=== PATIENT | male | born 1970 | race Caucasian/White ===

== ENCOUNTER 2018-01-25 10:13 | Inpatient (IN) | payer OTHER ==
[2018-01-25] MEDS: DIPHTH/TET/ACEL PERTUSS (ADULT) 0.5 ML VIAL IM* (10:56)
[2018-01-25 12:39] LABS: ADD MAN DIFF? NO
[2018-01-25] MEDS: morphine 4 MG/ML VIAL IV (12:48)
[2018-01-25 12:56] LABS: BASOPHIL # 0.1 10^3/ul (0.0-0.1); BASOPHILS % 0.7 % (0.0-2.0); EOSINOPHILS # 0.1 10^3/ul (0.0-0.5); EOSINOPHILS % 1.1 % (0.0-7.0); HEMATOCRIT 45.9 % (42.0-52.0); HEMOGLOBIN 16.1 g/dl (14.0-18.0); LYMPHOCYTES # 1.4 10^3/ul (0.8-2.9); LYMPHOCYTES % 19.1 % (15.0-51.0); MEAN CORPUSCULAR HEMOGLOBIN 32.9 pg (29.0-33.0); MEAN CORPUSCULAR HGB CONC 35.1 g/dl (32.0-37.0); MEAN CORPUSCULAR VOLUME 93.7 fl (82.0-101.0); MEAN PLATELET VOLUME 10.8 fl (7.4-10.4); MONOCYTE # 0.5 10^3/ul (0.3-0.9); MONOCYTES % 6.1 % (0.0-11.0); NEUTROPHIL # 5.5 10^3/ul (1.6-7.5); NEUTROPHILS % 72.6 % (39.0-77.0); PLATELET COUNT 151 10^3/UL (140-415); RED CELL DISTRIBUTION WIDTH 12.6 % (11.5-14.5)
[2018-01-25 12:56] LABS: WHITE BLOOD COUNT 7.6 10^3/ul (4.8-10.8)
[2018-01-25] MEDS ORDERED: ONDANSETRON 4 MG INJ IV (13:00)
[2018-01-25] MEDS ORDERED: ACETAMINOPHEN 325 MG TAB PO ×2 (13:00→13:30)
[2018-01-25 13:01] LABS: ANION GAP 18 (8-16); BLOOD UREA NITROGEN 11 mg/dl (7-20); CALCIUM 9.3 mg/dl (8.4-10.2); CARBON DIOXIDE 23 mmol/L (21-31); CHLORIDE 108 mmol/L (97-110); CREATININE 0.89 mg/dl (0.61-1.24); GLUCOSE 210 mg/dl (70-220); POTASSIUM 4.8 mmol/L (3.5-5.1); SODIUM 144 mmol/L (135-144)
[2018-01-25 13:04] LABS: INR 0.94; PROTIME 12.7 Sec (11.9-14.9)
[2018-01-25 13:05] LABS: PARTIAL THROMBOPLASTIN TIME 24.8 Sec (25.0-35.0)
[2018-01-25] MEDS ORDERED: morphine 2 MG INJ IV (13:30)
[2018-01-25] MEDS ORDERED: BISACODYL (EC) 5 MG TAB PO (13:30)
[2018-01-25] MEDS ORDERED: MAGNESIUM HYDROXIDE 30ML CUP PO (13:30)
[2018-01-25] MEDS ORDERED: LORAZEPAM 0.5 MG TAB PO (13:30)
[2018-01-25] MEDS ORDERED: NACL 0.9% 3 ML SYG IV (13:30)
[2018-01-25] MEDS: HEPARIN 5,000 UNIT/0.5 ML VIAL SC ×2 (14:00→22:00)
[2018-01-25] MEDS: DEXTROSE 5%-0.45% NACL 1,000 ML IV (16:07)
[2018-01-25] MEDS ORDERED: GLUCOSE GEL 15 GRAM TUBE BUCCAL (20:30)
[2018-01-25] MEDS ORDERED: DEXTROSE 50% 50 ML SYRINGE IV ×2 (20:30)
[2018-01-25] MEDS ORDERED: GLUCOSE GEL 15 GRAM TUBE PO ×2 (20:30)
[2018-01-25] MEDS ORDERED: GLUCAGON 1 MG INJ IM (20:30)
[2018-01-25] MEDS: INSULIN ASPART [NOVOLOG] 3 ML PEN SC (20:53)
[2018-01-26] MEDS: ACCU-CHEK XX (02:06)
[2018-01-26 05:31] LABS: ADD MAN DIFF? NO
[2018-01-26 05:40] LABS: BASOPHILS % 0.6 % (0.0-2.0); EOSINOPHILS # 0.1 10^3/ul (0.0-0.5); EOSINOPHILS % 1.3 % (0.0-7.0); HEMATOCRIT 42.6 % (42.0-52.0); HEMOGLOBIN 14.7 g/dl (14.0-18.0); LYMPHOCYTES # 1.5 10^3/ul (0.8-2.9); LYMPHOCYTES % 21.8 % (15.0-51.0); MEAN CORPUSCULAR HGB CONC 34.5 g/dl (32.0-37.0); MEAN CORPUSCULAR VOLUME 95.5 fl (82.0-101.0); MONOCYTE # 0.9 10^3/ul (0.3-0.9); MONOCYTES % 13.3 % (0.0-11.0); NEUTROPHIL # 4.4 10^3/ul (1.6-7.5); NEUTROPHILS % 62.7 % (39.0-77.0); PLATELET COUNT 132 10^3/UL (140-415); POSITIVE DIFF @See below; RED BLOOD COUNT 4.46 10^6/ul (4.70-6.10); RED CELL DISTRIBUTION WIDTH 12.5 % (11.5-14.5)
[2018-01-26] MEDS: HEPARIN 5,000 UNIT/0.5 ML VIAL SC ×3 (05:40→22:47)
[2018-01-26 06:06] LABS: HEMOGLOBIN A1C 8.4 % (0-5.9)
[2018-01-26 06:30] LABS: ALANINE AMINOTRANSFERASE 65 IU/L (13-69); ALBUMIN 4.1 g/dl (3.3-4.9); ALKALINE PHOSPHATASE 59 IU/L (42-121); ANION GAP 14 (8-16); ASPARTATE AMINO TRANSFERASE 45 IU/L (15-46); BILIRUBIN,INDIRECT 1.1 mg/dl (0-1.1); BILIRUBIN,TOTAL 1.1 mg/dl (0.2-1.3); BLOOD UREA NITROGEN 11 mg/dl (7-20); CARBON DIOXIDE 27 mmol/L (21-31); CHLORIDE 102 mmol/L (97-110); CREATININE 0.85 mg/dl (0.61-1.24); GLUCOSE 172 mg/dl (70-220); MAGNESIUM 1.9 mg/dl (1.7-2.5); POTASSIUM 4.1 mmol/L (3.5-5.1); SODIUM 139 mmol/L (135-144); TOTAL PROTEIN 7.5 g/dl (6.1-8.1)
[2018-01-26] MEDS: INSULIN ASPART [NOVOLOG] 3 ML PEN SC ×4 (07:32→20:37)
[2018-01-26] MEDS: LINAGLIPTIN 5 MG TABLET PO (10:49)
[2018-01-26] MEDS: metFORMIN 500 MG TAB PO (17:22)
[2018-01-26] MEDS: HYDROCODONE/APAP (5/325) TAB PO (19:45)
[2018-01-27] MEDS: ACCU-CHEK XX (02:44)
[2018-01-27] MEDS: HEPARIN 5,000 UNIT/0.5 ML VIAL SC ×3 (06:00→22:26)
[2018-01-27] MEDS: INSULIN ASPART [NOVOLOG] 3 ML PEN SC ×4 (07:40→20:47)
[2018-01-27] MEDS: metFORMIN 500 MG TAB PO ×2 (07:54→18:14)
[2018-01-27] MEDS: LINAGLIPTIN 5 MG TABLET PO (08:24)
[2018-01-27] MEDS: HYDROCODONE/APAP (5/325) TAB PO (20:49)
[2018-01-27] MEDS: FAMOTIDINE 20 MG INJ IV (22:23)
[2018-01-27] MEDS ORDERED: morphine LIQ (10 MG/5 ML) CUP PO (23:30)
[2018-01-28] MEDS: ACCU-CHEK XX (02:00)
[2018-01-28] MEDS: DEXTROSE 5%-0.45% NACL 1,000 ML IV ×2 (03:43→12:50)
[2018-01-28] MEDS: INSULIN ASPART [NOVOLOG] 3 ML PEN SC ×6 (05:00→20:32)
[2018-01-28 05:42] LABS: ADD MAN DIFF? NO
[2018-01-28 05:56] LABS: WHITE BLOOD COUNT 5.6 10^3/ul (4.8-10.8)
[2018-01-28 05:56] LABS: BASOPHIL # 0.1 10^3/ul (0.0-0.1); BASOPHILS % 1.1 % (0.0-2.0); EOSINOPHILS # 0.2 10^3/ul (0.0-0.5); EOSINOPHILS % 3.8 % (0.0-7.0); HEMATOCRIT 40.5 % (42.0-52.0); HEMOGLOBIN 14.1 g/dl (14.0-18.0); LYMPHOCYTES # 1.5 10^3/ul (0.8-2.9); LYMPHOCYTES % 27.1 % (15.0-51.0); MEAN CORPUSCULAR HEMOGLOBIN 32.9 pg (29.0-33.0); MEAN CORPUSCULAR HGB CONC 34.8 g/dl (32.0-37.0); MEAN CORPUSCULAR VOLUME 94.4 fl (82.0-101.0); MEAN PLATELET VOLUME 11.5 fl (7.4-10.4); MONOCYTE # 0.8 10^3/ul (0.3-0.9); MONOCYTES % 14.4 % (0.0-11.0); NEUTROPHILS % 52.9 % (39.0-77.0); PLATELET COUNT 122 10^3/UL (140-415); RED BLOOD COUNT 4.29 10^6/ul (4.70-6.10); RED CELL DISTRIBUTION WIDTH 12.1 % (11.5-14.5)
[2018-01-28] MEDS: HEPARIN 5,000 UNIT/0.5 ML VIAL SC ×3 (06:00→21:59)
[2018-01-28 06:31] LABS: ANION GAP 11 (8-16); BLOOD UREA NITROGEN 14 mg/dl (7-20); CALCIUM 9.1 mg/dl (8.4-10.2); CARBON DIOXIDE 28 mmol/L (21-31); CHLORIDE 99 mmol/L (97-110); CREATININE 0.85 mg/dl (0.61-1.24); GLUCOSE 165 mg/dl (70-220); MAGNESIUM 1.7 mg/dl (1.7-2.5); PHOSPHORUS 4.1 mg/dl (2.5-4.9); POTASSIUM 4.2 mmol/L (3.5-5.1); SODIUM 134 mmol/L (135-144)
[2018-01-28] MEDS: metFORMIN 500 MG TAB PO ×2 (07:38→17:50)
[2018-01-28] MEDS: LINAGLIPTIN 5 MG TABLET PO (08:59)
[2018-01-28] MEDS: FAMOTIDINE 20 MG INJ IV ×2 (09:12→21:00)
[2018-01-28] MEDS: INSULIN GLARGINE [LANTus] (100 UNITS/ML) SYG SC (09:16)
[2018-01-28] MEDS ORDERED: MIDAZOLAM 1 MG/ML 2 ML INJ (14:25)
[2018-01-28] MEDS: POLYMYXIN/BACITRACIN 1L IRRIG IRR (15:30)
[2018-01-28] MEDS ORDERED: morphine 10 MG INJ (15:37)
[2018-01-28] MEDS ORDERED: ROCURONIUM 50 MG INJ (16:41)
[2018-01-28] MEDS ORDERED: PROPOFOL 20 ML (16:41)
[2018-01-28] MEDS ORDERED: LIDOCAINE 2% (SDV) 5 ML INJ (16:41)
[2018-01-28] MEDS ORDERED: ONDANSETRON 4 MG INJ (16:41)
[2018-01-28] MEDS ORDERED: CEFAZOLIN 1 GM INJ (16:41)
[2018-01-28] MEDS ORDERED: ROPIVACAINE 0.5 % 30 ML VIAL (16:42)
[2018-01-28] MEDS ORDERED: NACL 0.9% 3 ML SYG IV (17:30)
[2018-01-28] MEDS ORDERED: FENTAnyl 50 MCG/ML VIAL IV (18:00)
[2018-01-28] MEDS ORDERED: NALOXONE (0.4 MG/ML) INJ IV (18:00)
[2018-01-28] MEDS ORDERED: HYDROmorphONE 1 MG/5 ML IV SYRINGE IV (18:00)
[2018-01-28] MEDS ORDERED: MEPERIDINE 25 MG INJ IV (18:00)
[2018-01-28] MEDS ORDERED: DIPHENHYDRAMINE 50 MG INJ IV (18:00)
[2018-01-28] MEDS ORDERED: LABETALOL HCL 20MG INJ IV (18:00)
[2018-01-28] MEDS: hydrALAzine 20 MG INJ IV (18:07)
[2018-01-28] MEDS: HYDROmorphONE 1 MG/5 ML IV SYRINGE IV (18:07)
[2018-01-28] MEDS: ONDANSETRON 4 MG INJ IV (18:08)
[2018-01-28] MEDS: D5W-0.45 NACL + KCL 20 MEQ 1,000 ML IV (18:37)
[2018-01-28] MEDS: CEFAZOLIN 1 GM/50 ML (PMX) 50 ML IVPB (18:37)
[2018-01-28] MEDS: 1/2 NS + KCL 20 MEQ 1,000 ML IV (21:57)
[2018-01-29] MEDS: CEFAZOLIN 1 GM/50 ML (PMX) 50 ML IVPB ×2 (02:03→09:06)
[2018-01-29] MEDS: ONDANSETRON 4 MG INJ IV (02:24)
[2018-01-29] MEDS: HYDROCODONE/APAP (5/325) TAB PO ×4 (02:24→13:56)
[2018-01-29 04:56] LABS: ADD MAN DIFF? NO
[2018-01-29 05:07] LABS: BASOPHILS % 0.4 % (0.0-2.0); EOSINOPHILS % 0.1 % (0.0-7.0); HEMATOCRIT 37.8 % (42.0-52.0); HEMOGLOBIN 13.3 g/dl (14.0-18.0); LYMPHOCYTES # 0.8 10^3/ul (0.8-2.9); LYMPHOCYTES % 10.7 % (15.0-51.0); MEAN CORPUSCULAR HEMOGLOBIN 33.7 pg (29.0-33.0); MEAN CORPUSCULAR HGB CONC 35.2 g/dl (32.0-37.0); MEAN CORPUSCULAR VOLUME 95.7 fl (82.0-101.0); MEAN PLATELET VOLUME 10.8 fl (7.4-10.4); MONOCYTE # 0.8 10^3/ul (0.3-0.9); MONOCYTES % 11.5 % (0.0-11.0); NEUTROPHIL # 5.6 10^3/ul (1.6-7.5); NEUTROPHILS % 76.7 % (39.0-77.0); PLATELET COUNT 131 10^3/UL (140-415); RED BLOOD COUNT 3.95 10^6/ul (4.70-6.10); RED CELL DISTRIBUTION WIDTH 12.2 % (11.5-14.5)
[2018-01-29 05:07] LABS: WHITE BLOOD COUNT 7.2 10^3/ul (4.8-10.8)
[2018-01-29 05:19] LABS: ANION GAP 12 (8-16); BLOOD UREA NITROGEN 8 mg/dl (7-20); CALCIUM 8.6 mg/dl (8.4-10.2); CARBON DIOXIDE 28 mmol/L (21-31); CHLORIDE 99 mmol/L (97-110); CREATININE 0.87 mg/dl (0.61-1.24); GLUCOSE 151 mg/dl (70-220); MAGNESIUM 1.6 mg/dl (1.7-2.5); PHOSPHORUS 3.7 mg/dl (2.5-4.9); POTASSIUM 4.4 mmol/L (3.5-5.1); SODIUM 135 mmol/L (135-144)
[2018-01-29] MEDS: HEPARIN 5,000 UNIT/0.5 ML VIAL SC (06:39)
[2018-01-29] MEDS: 1/2 NS + KCL 20 MEQ 1,000 ML IV ×2 (07:30→08:24)
[2018-01-29] MEDS: metFORMIN 500 MG TAB PO ×2 (08:18→17:37)
[2018-01-29] MEDS: FAMOTIDINE 20 MG INJ IV (08:18)
[2018-01-29] MEDS: LINAGLIPTIN 5 MG TABLET PO (08:18)
[2018-01-29] MEDS: INSULIN GLARGINE [LANTus] (100 UNITS/ML) SYG SC (08:21)
[2018-01-29] MEDS: INSULIN ASPART [NOVOLOG] 3 ML PEN SC ×4 (08:23→21:00)
[2018-01-29] MEDS: ENOXAPARIN 40 MG/0.4 ML SYG SC ×2 (08:23→11:03)
[2018-01-29] MEDS: morphine 2 MG INJ IV (10:58)
[2018-01-29] MEDS: HYDROCODONE/APAP (10/325) TAB PO ×2 (17:37→23:47)
[2018-01-29] MEDS: MAGNESIUM OXIDE 400 MG TAB PO (17:37)
[2018-01-29] MEDS: GABAPENTIN 300 MG CAP PO (20:31)
[2018-01-30 05:02] LABS: ADD MAN DIFF? NO
[2018-01-30 05:06] LABS: WHITE BLOOD COUNT 7.4 10^3/ul (4.8-10.8)
[2018-01-30 05:06] LABS: BASOPHILS % 0.5 % (0.0-2.0); EOSINOPHILS # 0.1 10^3/ul (0.0-0.5); EOSINOPHILS % 1.1 % (0.0-7.0); HEMOGLOBIN 12.6 g/dl (14.0-18.0); LYMPHOCYTES # 1.2 10^3/ul (0.8-2.9); LYMPHOCYTES % 16.8 % (15.0-51.0); MEAN CORPUSCULAR HEMOGLOBIN 32.6 pg (29.0-33.0); MEAN CORPUSCULAR HGB CONC 34.1 g/dl (32.0-37.0); MEAN CORPUSCULAR VOLUME 95.9 fl (82.0-101.0); MEAN PLATELET VOLUME 10.7 fl (7.4-10.4); MONOCYTE # 1.1 10^3/ul (0.3-0.9); MONOCYTES % 14.2 % (0.0-11.0); NEUTROPHILS % 66.9 % (39.0-77.0); PLATELET COUNT 142 10^3/UL (140-415); RED BLOOD COUNT 3.86 10^6/ul (4.70-6.10); RED CELL DISTRIBUTION WIDTH 12.2 % (11.5-14.5)
[2018-01-30 05:31] LABS: ANION GAP 11 (8-16); BLOOD UREA NITROGEN 10 mg/dl (7-20); CALCIUM 8.8 mg/dl (8.4-10.2); CARBON DIOXIDE 28 mmol/L (21-31); CHLORIDE 99 mmol/L (97-110); CREATININE 0.83 mg/dl (0.61-1.24); GLUCOSE 163 mg/dl (70-220); MAGNESIUM 1.9 mg/dl (1.7-2.5); PHOSPHORUS 3.2 mg/dl (2.5-4.9); POTASSIUM 3.7 mmol/L (3.5-5.1); SODIUM 134 mmol/L (135-144)
[2018-01-30] MEDS: HYDROCODONE/APAP (10/325) TAB PO ×5 (06:14→22:07)
[2018-01-30] MEDS: LINAGLIPTIN 5 MG TABLET PO (08:11)
[2018-01-30] MEDS: metFORMIN 500 MG TAB PO ×2 (08:12→18:01)
[2018-01-30] MEDS: GABAPENTIN 300 MG CAP PO ×3 (08:12→20:09)
[2018-01-30] MEDS: ENOXAPARIN 40 MG/0.4 ML SYG SC (08:13)
[2018-01-30] MEDS: INSULIN ASPART [NOVOLOG] 3 ML PEN SC ×4 (08:14→20:10)
[2018-01-31 05:31] LABS: ADD MAN DIFF? NO
[2018-01-31 05:40] LABS: BASOPHIL # 0.1 10^3/ul (0.0-0.1); BASOPHILS % 0.6 % (0.0-2.0); EOSINOPHILS # 0.2 10^3/ul (0.0-0.5); EOSINOPHILS % 2.3 % (0.0-7.0); HEMATOCRIT 35.8 % (42.0-52.0); HEMOGLOBIN 12.5 g/dl (14.0-18.0); LYMPHOCYTES % 11.9 % (15.0-51.0); MEAN CORPUSCULAR HEMOGLOBIN 32.8 pg (29.0-33.0); MEAN CORPUSCULAR HGB CONC 34.9 g/dl (32.0-37.0); MEAN PLATELET VOLUME 11.1 fl (7.4-10.4); MONOCYTE # 1.1 10^3/ul (0.3-0.9); MONOCYTES % 14.2 % (0.0-11.0); NEUTROPHIL # 5.6 10^3/ul (1.6-7.5); NEUTROPHILS % 70.4 % (39.0-77.0); PLATELET COUNT 157 10^3/UL (140-415); RED BLOOD COUNT 3.81 10^6/ul (4.70-6.10); RED CELL DISTRIBUTION WIDTH 12.2 % (11.5-14.5)
[2018-01-31 06:06] LABS: ANION GAP 12 (8-16); BLOOD UREA NITROGEN 13 mg/dl (7-20); CALCIUM 8.9 mg/dl (8.4-10.2); CARBON DIOXIDE 28 mmol/L (21-31); CHLORIDE 97 mmol/L (97-110); CREATININE 0.85 mg/dl (0.61-1.24); GLUCOSE 137 mg/dl (70-220); MAGNESIUM 1.9 mg/dl (1.7-2.5); PHOSPHORUS 3.5 mg/dl (2.5-4.9); POTASSIUM 4.3 mmol/L (3.5-5.1); SODIUM 133 mmol/L (135-144)
[2018-01-31] MEDS: HYDROCODONE/APAP (10/325) TAB PO (07:41)
[2018-01-31] MEDS: metFORMIN 500 MG TAB PO ×2 (08:31→18:01)
[2018-01-31] MEDS: GABAPENTIN 300 MG CAP PO ×3 (08:31→20:43)
[2018-01-31] MEDS: LINAGLIPTIN 5 MG TABLET PO (08:31)
[2018-01-31] MEDS: ENOXAPARIN 40 MG/0.4 ML SYG SC (08:32)
[2018-01-31] MEDS: INSULIN ASPART [NOVOLOG] 3 ML PEN SC ×4 (08:33→21:00)
[2018-01-31] MEDS ORDERED: morphine LIQ (10 MG/5 ML) CUP PO (17:30)
[2018-02-01 05:28] LABS: ADD MAN DIFF? NO
[2018-02-01 05:33] LABS: WHITE BLOOD COUNT 7.6 10^3/ul (4.8-10.8)
[2018-02-01 05:33] LABS: BASOPHIL # 0.1 10^3/ul (0.0-0.1); BASOPHILS % 0.9 % (0.0-2.0); EOSINOPHILS # 0.2 10^3/ul (0.0-0.5); EOSINOPHILS % 2.9 % (0.0-7.0); HEMATOCRIT 35.5 % (42.0-52.0); HEMOGLOBIN 12.4 g/dl (14.0-18.0); LYMPHOCYTES # 1.1 10^3/ul (0.8-2.9); LYMPHOCYTES % 14.3 % (15.0-51.0); MEAN CORPUSCULAR HEMOGLOBIN 32.5 pg (29.0-33.0); MEAN CORPUSCULAR HGB CONC 34.9 g/dl (32.0-37.0); MEAN CORPUSCULAR VOLUME 92.9 fl (82.0-101.0); MEAN PLATELET VOLUME 10.8 fl (7.4-10.4); MONOCYTE # 1.1 10^3/ul (0.3-0.9); MONOCYTES % 14.8 % (0.0-11.0); NEUTROPHIL # 5.1 10^3/ul (1.6-7.5); NEUTROPHILS % 66.2 % (39.0-77.0); PLATELET COUNT 208 10^3/UL (140-415); RED BLOOD COUNT 3.82 10^6/ul (4.70-6.10); RED CELL DISTRIBUTION WIDTH 12.2 % (11.5-14.5)
[2018-02-01 06:02] LABS: ANION GAP 14 (8-16); BLOOD UREA NITROGEN 17 mg/dl (7-20); CALCIUM 9.4 mg/dl (8.4-10.2); CARBON DIOXIDE 27 mmol/L (21-31); CHLORIDE 98 mmol/L (97-110); CREATININE 0.87 mg/dl (0.61-1.24); GLUCOSE 128 mg/dl (70-220); MAGNESIUM 1.8 mg/dl (1.7-2.5); PHOSPHORUS 4.3 mg/dl (2.5-4.9); POTASSIUM 3.7 mmol/L (3.5-5.1); SODIUM 135 mmol/L (135-144)
[2018-02-01] MEDS: LINAGLIPTIN 5 MG TABLET PO (08:59)
[2018-02-01] MEDS: GABAPENTIN 300 MG CAP PO ×2 (08:59→13:08)
[2018-02-01] MEDS: metFORMIN 500 MG TAB PO (08:59)
[2018-02-01] MEDS: INSULIN ASPART [NOVOLOG] 3 ML PEN SC ×2 (09:00→13:03)
[2018-02-01] MEDS: ENOXAPARIN 40 MG/0.4 ML SYG SC (09:04)
== END 2018-02-01 14:40 | disposition home health service (06) | DRG 494 ==
LOC: MS3 14:55 → FTE 10:13 → MS1 01-27 13:53 → MS3 12:33
PROC: 0QSG06Z Reposition Right Tibia with Intramedullary Internal Fixation Device, Open Approach (ICD-10-PCS; principal; 2018-01-28 14:00)
DX: S82.251A Displaced comminuted fracture of shaft of right tibia, initial encounter for closed fracture (principal); S01.81XA Laceration without foreign body of other part of head, initial encounter; E11.9 Type 2 diabetes mellitus without complications; E66.9 Obesity, unspecified; M17.11 Unilateral primary osteoarthritis, right knee; S82.61XA Displaced fracture of lateral malleolus of right fibula, initial encounter for closed fracture; S82.831A Other fracture of upper and lower end of right fibula, initial encounter for closed fracture; Z68.35 Body mass index [BMI] 35.0-35.9, adult; Y09 Assault by unspecified means
CPT/HCPCS: 70450; 70486; 71045; 72125; 73590; 73610-RT; 73630; 80048; 80053; 82962; 83036; 83735; 84100; 85025; 85610; 85730; 90471; 90715; 93306; 97116; 97161; 97530; 99285-25